=== PATIENT | female | born 1995 | race Caucasian/White ===

== ENCOUNTER 2018-08-10 08:05 | Emergency (ER) | payer MEDICAID ==
[~2018-08-10 08:05] MED LIST: IBUPROFEN600 MG PO; PERCOCET 10/3251 TA1 PO; PRENATAL COMPLE1 TAB PO
[2018-08-10 08:08] VITALS: BMI 33.0
[2018-08-10] MEDS ORDERED: AUGMENTIN 875-11 TAB PO (08:40)
[2018-08-10] MEDS ORDERED: FLUTICASONE PRO16 GM NASAL (08:40)
[2018-08-10 08:47] VITALS: BP 132/78
== END 2018-08-10 08:48 | disposition home or self-care (01) ==
LOC: D.ER 08:05
DX: J01.90 Acute sinusitis, unspecified (principal)

== ENCOUNTER 2018-11-09 10:38 | Emergency (ER) | payer MEDICAID ==
[~2018-11-09] VITALS: Ht 157.5 cm; Wt 81.8 kg
[~2018-11-09 10:38] MED LIST changes: +AUGMENTIN 875-11 TAB PO; +FLUTICASONE PRO16 GM NASAL
[2018-11-09 10:45] VITALS: Ht 157.5 cm; Wt 81.8 kg
[2018-11-09 11:13] LABS: COLOR STRAW (YELLOW)
[2018-11-09 11:14] LABS: APPEARANCE CLEAR (CLEAR); BILIRUBIN NEGATIVE (NEGATIVE); GLUCOSE NEGATIVE (NEGATIVE); HCG URINE NEGATIVE (NEGATIVE); KETONE NEGATIVE (NEGATIVE); NITRITE NEGATIVE (NEGATIVE); PROTEIN NEGATIVE (NEGATIVE); SPECIFIC GRAVITY 1.005 (1.005-1.020); UROBILINOGEN NORMAL (NORMAL)
[2018-11-09 11:15] LABS: BASOPHILS 0.1 % (0-2); EOSINOPHILS 0.6 % (0-7); HEMATOCRIT 33.5 % (36.0-48.0); IMMATURE GRANULOCYTES 0.1 % (0-5); LYMPHOCYTES 16.4 % (15-50); MCH 26.4 pg (26.0-34.0); MCHC 32.8 g/dL (31.0-37.0); MCV 80.3 fL (80.0-100.0); MEAN PLATELET VOLUME 9.3 fL (7.4-10.4); MONOCYTES 5.4 % (2-11); NEUTROPHILS 77.4 % (40-80); RBC 4.17 10x6/uL (4.00-5.40); RDW 18.1 % (11.5-14.5); WBC 8.7 10x3/uL (4.8-10.8)
[2018-11-09 11:17] LABS: UDS - AMPHET NEGATIVE QUAL (NEGATIVE); UDS - BARB NEGATIVE QUAL (NEGATIVE); UDS - BENZO NEGATIVE QUAL (NEGATIVE); UDS - COCAINE NEGATIVE QUAL (NEGATIVE); UDS - OPIATE NEGATIVE QUAL (NEGATIVE); UDS - PCP NEGATIVE QUAL (NEGATIVE); UDS - THC POSITIVE QUAL (NEGATIVE)
[2018-11-09 11:19] LABS: PLATELET COUNT 366 10x3/uL (130-400)
[2018-11-09 11:34] LABS: ALBUMIN 3.5 g/dL (3.4-5.0); ALKALINE PHOSPHATASE 107 U/L (46-116); ALT (SGPT) 24 U/L (10-68); BILIRUBIN - TOTAL 0.27 mg/dL (0.2-1.3); CALC OSMOLALITY 279 mosm/kg (275-300); CALCIUM 8.5 mg/dL (8.5-10.1); CARBON DIOXIDE 26.5 mmol/L (21.0-32.0); CHLORIDE - SERUM 104 mmol/L (98-107); CREATININE - SERUM 0.7 mg/dL (0.6-1.3); GLUCOSE 93 mg/dL (74-106); POTASSIUM - SERUM 4.2 mmol/L (3.5-5.1); PROTEIN - SERUM 6.9 g/dL (6.4-8.2); SODIUM 139 mmol/L (136-145); UREA NITROGEN 19 mg/dL (7-18); eGFR NON AFRICAN AMERICAN > 90 mL/min (90-120)
[2018-11-09 11:36] LABS: MAGNESIUM - SERUM 1.9 mg/dL (1.8-2.4)
[2018-11-09 11:37] LABS: VALPROIC ACID (DEPAKOTE) < 3.0 ug/mL (50.0-100.0)
--- NOTE | 2018-11-09 12:53 | NUR ---
DR. WEAVER NOTIFIED AND REVIEWED PT'S BEHAVIOR AND ASSESSMENT RESULTS. PT IS A LOW RISK PER DR. WEAVER. DR. WEAVER STATED TO GIVE RESOURCES TO PT AT TIME OF DISCHARGE. NO FURTHER ORDERS AT THIS TIME. RESOURCES REVIEWED WITH PT AND SHE VERBALIZED UNDERSTANDING.
[2018-11-09] MEDS ORDERED: ABILIFY10 MG PO (13:03)
[2018-11-09] MEDS ORDERED: DEPAKENE250 MG PO (13:03)
[2018-11-09] MEDS ORDERED: TORADOL10 MG PO (13:03)
[2018-11-09 13:15] VITALS: BP 112/68
== END 2018-11-09 13:16 | disposition home or self-care (01) ==
LOC: D.ER 10:38
PROVIDERS: Emergency Medicine
DX: S51.812A Laceration without foreign body of left forearm, initial encounter (principal); X78.8XXA Intentional self-harm by other sharp object, initial encounter; Y93.89 Activity, other specified; Y92.89 Other specified places as the place of occurrence of the external cause; Z86.59 Personal history of other mental and behavioral disorders

== ENCOUNTER 2019-10-11 14:42 | Emergency (ER) | payer OTHER ==
[~2019-10-11] VITALS: Ht 157.5 cm; Wt 90.9 kg
[~2019-10-11 14:42] MED LIST changes: +ABILIFY10 MG PO; +DEPAKENE250 MG PO; +TORADOL10 MG PO
[2019-10-11 14:47] VITALS: Ht 157.5 cm; Wt 90.9 kg
[2019-10-11 15:28] VITALS: BP 128/78
== END 2019-10-11 15:29 | disposition left against medical advice (07) ==
LOC: D.ER 14:42
DX: Z53.29 Procedure and treatment not carried out because of patient's decision for other reasons (principal); R07.9 Chest pain, unspecified